=== PATIENT | female | born 1995 | race Caucasian/White ===

== ENCOUNTER 2018-07-16 04:56 | Emergency (ER) | payer OTHER ==
[~2018-07-16] VITALS: Ht 157.5 cm; Wt 54.4 kg
[2018-07-16 05:01] VITALS: BP 129/70
--- NOTE | 2018-07-16 05:01 | NUR ---
TO BED # 07 AMBULATORY.
--- NOTE | 2018-07-16 05:21 | NUR ---
seen and examined by Gracy , WITH ORDERS AND CARRIED OUT,
--- NOTE | 2018-07-16 05:47 | NUR ---
Ultrasound at bedside.
--- NOTE | 2018-07-16 05:48 | NUR ---
Female Morphologist accompanied female patient for Ultrasound.PATIENT TOLERATED WELL.
[2018-07-16 05:51] LABS: APPEARANCE,URINE SL CLOUDY (CLEAR); BILIRUBIN,URINE NEGATIVE (NEGATIVE); BLOOD, URINE NEGATIVE (NEGATIVE); COLOR,URINE YELLOW (YELLOW); LEUKOCYTE ESTERASE ,URINE TRACE (NEGATIVE); NITRITE, URINE NEGATIVE (NEGATIVE); PH,URINE 6.5 (5.0-9.0); UGLUCOSE NEGATIVE (NEGATIVE)
[2018-07-16 05:53] LABS: BASOPHILS % (AUTO) 0.3 % (0.0-2.0); EOSINOPHILS % (AUTO) 0.1 % (0.0-4.0); HEMATOCRIT 39.8 % (36-48); HEMOGLOBIN 13.6 g/dL (12.0-16.0); LYMPHOCYTES # (AUTO) 2.7 K/uL (2.5-16.5); LYMPHOCYTES % (AUTO) 25.9 % (20.5-51.1); MEAN CORPUSCULAR HEMOGLOBIN 31 pg (27-31); MEAN CORPUSCULAR HGB CONC 34 g/dL (33-37); MONOCYTES # (AUTO) 0.9 K/uL (0.8-1.0); MONOCYTES % (AUTO) 8.4 % (1.7-9.3); NEUTROPHILS # (AUTO) 6.8 K/uL (1.8-7.7); NEUTROPHILS % (AUTO) 65.3 % (42.2-75.2); PLATELET COUNT (AUTO) 407 K/uL (140-450); RED BLOOD CELL COUNT(AUTO) 4.43 MIL/uL (4.20-5.40); RED CELL DISTRIBUTION WIDTH 15.7 % (11.6-13.7); WHITE BLOOD COUNT (AUTO) 10.5 K/uL (4.5-11.0)
[2018-07-16 06:17] LABS: RBC,URINE 0-5 /HPF (0-5); WBC,URINE 0-5 /HPF (0-5)
--- NOTE | 2018-07-16 06:30 | NUR ---
A/W RESULTS FOR ERMDS DISPOSITON.
--- NOTE | 2018-07-16 07:10 | NUR ---
REPORT GIVEN TO BENJAMÍN REGAN, AT BEDSIDE.
[2018-07-16 07:31] VITALS: BP 141/78
--- NOTE | 2018-07-16 07:31 | NUR ---
Patient discharged with v/s stable. Written and verbal after care instructions given and explained. Patient alert, oriented and verbalized understanding of instructions. Ambulatory with steady gait. All questions addressed prior to discharge. ID band removed. Patient advised to follow up with PMD. Rx of vitamns and acetaminophen given. Patient educated on indication of medication including possible reaction and side effects. Opportunity to ask questions provided and answered.
== END 2018-07-16 07:31 | disposition home or self-care (01) ==
LOC: MED 04:56
DX: O20.0 Threatened abortion (principal); Z3A.01 Less than 8 weeks gestation of pregnancy
CPT/HCPCS: 36415; 76817; 81001; 81025; 84702; 85025; 86900; 86901; 99284; Q0092

== ENCOUNTER 2020-10-03 08:10 | Emergency (ER) | payer MEDICAID, OTHER ==
[~2020-10-03] VITALS: Ht 157.5 cm; Wt 66.2 kg
[2020-10-03 08:16] VITALS: BP 109/64
--- NOTE | 2020-10-03 08:25 | NUR ---
pt ambulated to bed 09.
--- NOTE | 2020-10-03 08:28 | NUR ---
Patient ambulated to restroom for urine sample. Placed into a gown.
--- NOTE | 2020-10-03 08:50 | NUR ---
25 YEAR OLD FEMALE COMPLAINSN OF VAGINAL PAIN, DYSURIA, AND DISCHARGE X 1 WEEK. PT DENIES ANY ABDOMINAL PAIN, DENIES N/V/D. PT AOX4, BREATHING EVEN AND UNLABORED, SKIN WARM AND DRY. BED IN LOWEST POSITION, LOCKED, BED RAIL UPX1. PMH - DENIES ALLERGIES - NKA
[2020-10-03] MEDS ORDERED: NITR100C7 PO (09:11)
[2020-10-03] MEDS ORDERED: METR500T1 PO (09:11)
[2020-10-03] MEDS ORDERED: FLUC150T PO (09:11)
[2020-10-03 09:18] VITALS: BP 109/64
--- NOTE | 2020-10-03 09:18 | NUR ---
Patient discharged with v/s stable. Written and verbal after care instructions given VAGINITIS and explained. Patient alert, oriented and verbalized understanding of instructions. Ambulatory with steady gait. All questions addressed prior to discharge. ID band removed. Patient advised to follow up with PMD. Rx of 100MG PO BID FOR 7DAYS FLUCONAZOLE 150MG PO ONCE,FLAGYL 500MG PO BID, AND MACROBID given. Patient educated on indication of medication including possible reaction and side effects. Opportunity to ask questions provided and answered.
== END 2020-10-03 09:18 | disposition home or self-care (01) ==
LOC: MED 08:10
DX: N76.0 Acute vaginitis (principal); Z79.899 Other long term (current) drug therapy
CPT/HCPCS: 81002; 81025; 87210; 99284